=== PATIENT | female | born 1975 | race Caucasian/White ===

== ENCOUNTER → 2021-10-16 | Outpatient (CLI) | payer OTHER ==
[~2021-10-16] MED LIST: ANTIVERT 12.512.5 MG PO; ASPIR 8181 MG PO
== END ==
LOC: CATH 09:21
DX: R42 Dizziness and giddiness (principal); R55 Syncope and collapse

== ENCOUNTER → 2021-11-19 | Outpatient (CLI) | payer OTHER | LOC: HEART 5 15:45 | DX: R00.1 Bradycardia, unspecified (principal); R00.2 Palpitations; R55 Syncope and collapse; R42 Dizziness and giddiness; R53.83 Other fatigue ==

== ENCOUNTER → 2021-11-30 | Outpatient (CLI) | payer OTHER | LOC: HEART 5 11-12 15:00 | DX: R00.1 Bradycardia, unspecified (principal); R55 Syncope and collapse; R53.83 Other fatigue; R00.2 Palpitations; I51.7 Cardiomegaly | CPT/HCPCS: 93306 ==